=== PATIENT | male | born 1975 | race Hispanic/Latino ===

== ENCOUNTER 2018-10-02 07:30 | Emergency (ER) | payer OTHER ==
[2018-10-02 07:43] VITALS: BMI 27.8
--- NOTE | 2018-10-02 08:04 | ED PDOC ---
Arrival/HPI - General Chief Complaint: Lower Extremity Problem/Injury Time Seen by Provider: 10/02/18 07:33 Historian: Patient - History of Present Illness Narrative History of Present Illness (Text): 10/02/18 08:01 42 year old male, with no significant past medical history, presents to the emergency department complaining of left ankle and foot pain s/p stepping into a pothole and twisting his ankle 3 days ago. Patient has been applying ice and elevating it. He reports the swelling has gone down and that he is able to ambulate, but still reports pain. Patient denies any knee pain, back pain, numbness/tingling, weakness, or any other complaints. Time/Duration: Other (3 days) Symptom Onset: Gradual Symptom Course: Unchanged Activities at Onset: Light Context: Other (twisted ankle ) Past Medical History - Provider Review Nursing Documentation Reviewed: Yes Primary Care Provider: Non [facility] Provider, - Psychiatric Hx Substance Use: No - Surgical History Hx Orthopedic Surgery: Yes (left ankle) - Anesthesia Hx Anesthesia: Yes Hx Anesthesia Reactions: No Hx Malignant Hyperthermia: No Family/Social History - Physician Review Nursing Documentation Reviewed: Yes Family/Social History: No Known Family HX Smoking Status: Light Smoker < 10 Cigarettes Daily Hx Alcohol Use: Yes Frequency of alcohol use: Socially Hx Substance Use: No Allergies/Home Meds Allergies/Adverse Reactions: Allergies No Known Allergies Allergy (Verified 10/02/18 07:42) Review of Systems - Physician Review All systems were reviewed & negative as marked: Yes - Review of Systems Musculoskeletal: Other ((+) left ankle and left foot pain. (-) knee pain). absent: Back Pain Neurological: absent: Focal Weakness, Other (numbness/tingling) Physical Exam Vital Signs Reviewed: Yes Vital Signs Temp Pulse Resp BP Pulse Ox 10/02/18 07:49 98.6 F 86 19 116/76 98 10/02/18 07:43 98.6 F 86 18 116/76 98 Temperature: Afebrile Blood Pressure: Normal Pulse: Regular Respiratory Rate: Normal Appearance: Positive for: Well-Appearing, Non-Toxic, Comfortable Pain Distress: None Mental Status: Positive for: Alert and Oriented X 3 - Systems Exam Head: Present: Atraumatic, Normocephalic Neck: Present: Normal Range of Motion Back: Present: Normal Inspection Lower Extremity: Present: Tenderness (diffusely tender on the ankle), Other (f oot and ankle swelling. ecchymosis noted to the medial and lateral area of the foot. Dorsum foot well healed surgical scar noted). No: Edema Neurological: Present: GCS=15, Speech Normal Skin: Present: Warm, Dry, Normal Color. No: Rashes Psychiatric: Present: Alert, Oriented x 3, Normal Insight, Normal Concentration Medical Decision Making ED Course and Treatment: 10/02/18 08:07 Impression: 42 year old male presents complaining of left ankle and foot pain s/p stepping into a pothole and twisting his ankle 3 days ago. Plan: -- Left foot and ankle x-ray -- Reassess and disposition Progress Notes: - RAD Interpretation Radiology Orders: 10/02/18 07:54 ANKLE LEFT 3 VIEWS ROUTINE [RAD] Stat FOOT LEFT 3 VIEWS ROUTINE [RAD] Stat Teletype Installer: Radiologist - Scribe Statement The provider has reviewed the documentation as recorded by the Scribe Pham Manrique Provider Scribe Attestation: All medical record entries made by the Scribe were at my direction and personally dictated by me. I have reviewed the chart and agree that the record accurately reflects my personal performance of the history, physical exam, medical decision making, and the department course for this patient. I have also personally directed, reviewed, and agree with the discharge instructions and disposition. Disposition/Present on Arrival - Present on Arrival Any Indicators Present on Arrival: No History of DVT/PE: No History of Uncontrolled Diabetes: No Urinary Catheter: No History of Decub. Ulcer: No History Surgical Site Infection Following: None - Disposition Have Diagnosis and Disposition been Completed?: Yes Diagnosis: Ankle sprain Disposition: HOME/ ROUTINE Disposition Time: 08:50 Condition: GOOD Discharge Instructions (ExitCare): Ankle Sprain (DC) Additional Instructions: QIAN VERDE JR, thank you for letting us take care of you today. The emergency medical care you received today was directed at your acute symptoms. If you were prescribed any medication, please fill it and take as directed. It may take several days for your symptoms to resolve. Return to the Emergency Department if your symptoms worsen, do not improve, or if you have any other problems. Please contact your doctor or call one of the physicians/clinics you have been referred to that are listed on the Patient Visit Information form that is included in your discharge packet. Bring any paperwork you were given at discharge with you along with any medications you are taking to your follow up visit. Our treatment cannot replace ongoing medical care by a primary care provider outside of the emergency department. Thank you for allowing the [facility] team to be part of your care today. Continue to ice and elevate the ankle. Take motrin for pain/swelling. Follow up with your primary care doctor and orthopedic doctor this week for re- evaluation and further management. Prescriptions: Ibuprofen [Motrin] 600 mg PO Q6 PRN #20 tab PRN Reason: Pain, Moderate (4-7) Referrals: FAMILY PROVIDER,NO [Primary Care Provider] - Follow up with primary Forms: [facility] ([place])
--- NOTE | 2018-10-02 09:00 | RAD ---
Date of service: 10/02/2018 PROCEDURE: Left Ankle Radiographs. HISTORY: r/o fx COMPARISON: None available. TECHNIQUE: 3 views obtained. FINDINGS: BONES: Normal. No fracture. Well corticated bony fragments are seen adjacent to the medial and lateral malleolus consistent with previous injury JOINTS: Normal. No osteoarthritis. Ankle mortise maintained. Talar dome intact SOFT TISSUES: Normal. OTHER FINDINGS: None. IMPRESSION: No acute fracture
--- NOTE | 2018-10-02 09:01 | RAD ---
Date of service: 10/02/2018 PROCEDURE: Left Foot Radiographs. HISTORY: r/o fx COMPARISON: None. TECHNIQUE: 3 views obtained. FINDINGS: BONES: A screw can be seen extending from the 1st cuneiform into the base of the 2nd metatarsal. No acute fracture JOINTS: Normal. SOFT TISSUES: Normal. OTHER FINDINGS: None. IMPRESSION: Negative study
[2018-10-02 09:43] VITALS: BP 111/62; PULSE 72; RESP 16; TEMP 97.6; O2SAT 97
== END 2018-10-02 09:53 | disposition home or self-care (01) ==
LOC: ED 07:30 → MERGE 07:30 → ED 09:53
DX: S93.402A Sprain of unspecified ligament of left ankle, initial encounter (principal); X50.1XXA Overexertion from prolonged static or awkward postures, initial encounter; F17.210 Nicotine dependence, cigarettes, uncomplicated